=== PATIENT | female | born 1990 | race Caucasian/White ===

== ENCOUNTER 2016-09-28 06:58 | Day surgery (SDC) | payer MEDICAID ==
[~2016-09-28] VITALS: Ht 157.5 cm; Wt 74.8 kg
[2016-09-28] MEDS ORDERED: fentaNYL 0.05 MG/ML VIAL ONE (07:25)
[2016-09-28] MEDS ORDERED: MIDAZOLAM 2 MG/2 ML VIAL ONE ×2 (07:25→07:26)
== END 2016-09-28 09:50 | disposition home or self-care (01) ==
LOC: MDS 06:58 → MMU 06:58 → MDS 09:50
PROVIDERS: ATTEND Internal Medicine Gastroenterology
DX: K31.89 Other diseases of stomach and duodenum (principal); K21.9 Gastro-esophageal reflux disease without esophagitis; E66.3 Overweight; Z79.899 Other long term (current) drug therapy; Z98.890 Other specified postprocedural states; Z68.29 Body mass index [BMI] 29.0-29.9, adult
CPT/HCPCS: 36415; 43239; 86677; J2250; J7030; J3010

== ENCOUNTER 2016-10-26 17:51 | Emergency (ER) | payer MEDICAID ==
[~2016-10-26] VITALS: Ht 157.5 cm; Wt 72.6 kg
[2016-10-26 18:55] VITALS: BP 124/83
[2016-10-26 19:31] LABS: BASOPHILS # (AUTO) 0.7 K/uL (0.00-0.22); EOSINOPHILS # (AUTO) 0.1 K/uL (0-0.4); HEMOGLOBIN 14.6 g/dL (12.0-16.0); LYMPHOCYTES # (AUTO) 1.6 K/uL (2.5-16.5); MEAN CORPUSCULAR HEMOGLOBIN 29 pg (27-31); MEAN CORPUSCULAR HGB CONC 33 g/dL (33-37); MEAN CORPUSCULAR VOLUME 91 fL (80-94); MONOCYTES # (AUTO) 0.2 K/uL (0.8-1.0); PLATELET COUNT (AUTO) 313 K/uL (140-450); RED BLOOD CELL COUNT(AUTO) 4.97 MIL/uL (4.20-5.40); RED CELL DISTRIBUTION WIDTH 13.1 % (11.6-13.7)
[2016-10-26 19:36] LABS: APPEARANCE,URINE CLEAR (CLEAR); BILIRUBIN,URINE NEGATIVE (NEGATIVE); BLOOD, URINE NEGATIVE (NEGATIVE); COLOR,URINE YELLOW (YELLOW); LEUKOCYTE ESTERASE ,URINE 1+ (NEGATIVE); NITRITE, URINE NEGATIVE (NEGATIVE); PH,URINE 6.5 (5.0-9.0); UGLUCOSE NEGATIVE (NEGATIVE)
[2016-10-26] MEDS ORDERED: KETOROLAC 30 MG/ML VIAL IVP ONE (19:40)
[2016-10-26] MEDS ORDERED: NACL 0.9% 1,000 ML IV ONE (19:40)
[2016-10-26 19:41] LABS: BARBITURATE, URINE NEG. ng/ml (NEG <=200); BENZODIAZEPINE, URINE NEG. ng/mL (NEG <=200); CANNABINOID, URINE NEG. ng/mL (NEG <=50); COCAINE, URINE NEG. ng/mL (NEG <=300); OPIATE, URINE NEG. ng/mL (NEG <=2000); PHENCYCLIDINE SCREEN,URINE NEG. ng/mL (NEG <=25)
[2016-10-26 19:42] LABS: RBC,URINE 0-3 /HPF (0-5); WBC,URINE 0-5 /HPF (0-5)
[2016-10-26 19:50] LABS: ANION GAP 16.4 (8-16); CARBON DIOXIDE 23.6 mmol/L (21-32); CREATININE 0.7 mg/dL (0.6-1.3)
[2016-10-26 19:58] LABS: THYROID STIMULATING HORMONE 2.08 uIU/mL (0.34-3.74); TOTAL BILIRUBIN 0.3 mg/dL (0.0-1.0)
[2016-10-26 20:05] VITALS: BP 118/72
== END 2016-10-26 20:05 | disposition home or self-care (01) ==
LOC: MED 17:51
DX: F41.9 Anxiety disorder, unspecified (principal); R51 Headache; R03.0 Elevated blood-pressure reading, without diagnosis of hypertension
CPT/HCPCS: 36415; 71010; 80053; 80305; 81001; 81025; 84443; 85025; 87086; 93005; 96374; 99285; J1885; J7030; Q0092

== ENCOUNTER 2017-04-08 14:25 | Emergency (ER) | payer OTHER, MEDICAID ==
[~2017-04-08] VITALS: Ht 157.5 cm; Wt 72.1 kg
[2017-04-08 14:37] VITALS: BP 117/84
--- NOTE | 2017-04-08 14:42 | NUR ---
PATIENT AMBULATED TO BED #11
--- NOTE | 2017-04-08 14:55 | NUR ---
PRIMARY NURSE AND ERMD MADE AWARE OF BS 64. ORANGE JUICE GIVEN
--- NOTE | 2017-04-08 15:00 | NUR ---
PATIENT PRESENTS TO ED WITH C/O HEADACHE, DIZZINESS AND CHEST SORENESS . PT STATES SHE HAS BEEN EXPERIENCING SYMPTOMS FOR 3 DAYS NOW . DENIES N/V/D; SKIN IS PINK/WARM/DRY; AAOX4 WITH EVEN AND STEADY GAIT; LUNGS CLEAR BL; HR EVEN AND REGULAR; PT DENIES ANY FEVER,SOB, OR COUGH AT THIS TIME; PATIENT STATES PAIN OF 8/10 AT THIS TIME; VSS; PATIENT POSITIONED FOR COMFORT; HOB ELEVATED; BEDRAILS UP X2; BED DOWN. ER MD MADE AWARE OF PT STATUS.
[2017-04-08] MEDS ORDERED: KETOROLAC 60 MG/2 ML VIAL IM ONE (15:10)
[2017-04-08] MEDS ORDERED: ALPRAZolam 0.5 MG TAB PO SCH (15:10)
[2017-04-08 16:47] VITALS: BP 107/70
--- NOTE | 2017-04-08 16:48 | NUR ---
Patient discharged with v/s stable. Written and verbal after care instructions given and explained. Patient alert, oriented and verbalized understanding of instructions. Ambulatory with steady gait. All questions addressed prior to discharge. ID band removed. Patient advised to follow up with PMD. Rx of VISTARIL AND LEVSIN given. Patient educated on indication of medication including possible reaction and side effects. Opportunity to ask questions provided and answered.
== END 2017-04-08 16:48 | disposition home or self-care (01) ==
LOC: MED 14:25
DX: K58.9 Irritable bowel syndrome, unspecified (principal); K21.9 Gastro-esophageal reflux disease without esophagitis
CPT/HCPCS: 81002; 81025; 82948; 93005; 96372; 99283; J1885

== ENCOUNTER 2017-05-11 19:03 | Emergency (ER) | payer MEDICAID, OTHER ==
[~2017-05-11] VITALS: Ht 160 cm; Wt 72.6 kg
--- NOTE | 2017-05-11 19:12 | NUR ---
Sujit santiago in [facility] - 05/11/17 at 1912 by SYLVESTER PT AMBULATES TO CHAIR A
[2017-05-11 19:16] VITALS: BP 125/78
--- NOTE | 2017-05-11 19:22 | NUR ---
PT.AMBULATES TO ER CHAIR D
--- NOTE | 2017-05-11 19:24 | NUR ---
Dr. Ryder evaluating patient.
[2017-05-11 19:47] LABS: APPEARANCE,URINE CLEAR (CLEAR); BILIRUBIN,URINE NEGATIVE (NEGATIVE); BLOOD, URINE NEGATIVE (NEGATIVE); COLOR,URINE YELLOW (YELLOW); LEUKOCYTE ESTERASE ,URINE 1+ (NEGATIVE); NITRITE, URINE NEGATIVE (NEGATIVE); PH,URINE 7.5 (5.0-9.0); UGLUCOSE NEGATIVE (NEGATIVE)
[2017-05-11] MEDS ORDERED: KETOROLAC 60 MG/2 ML VIAL IM ONE (19:50)
[2017-05-11 19:58] LABS: RBC,URINE 0-5 (RARE) /HPF (0-5)
[2017-05-11 21:16] VITALS: BP 133/84
--- NOTE | 2017-05-11 21:16 | NUR ---
Patient discharged with v/s stable. Written and verbal after care instructions given and explained. Patient alert, oriented and verbalized understanding of instructions. Ambulatory with steady gait. All questions addressed prior to discharge. ID band removed. Patient advised to follow up with PMD. Rx of Motrin and Tramadol given. Patient educated on indication of medication including possible reaction and side effects. Opportunity to ask questions provided and answered.
== END 2017-05-11 21:16 | disposition home or self-care (01) ==
LOC: MED 19:03
DX: G44.209 Tension-type headache, unspecified, not intractable (principal); K21.9 Gastro-esophageal reflux disease without esophagitis
CPT/HCPCS: 81001; 87086; 96372; 99284; J1885; 81025

== ENCOUNTER 2017-07-14 08:35 | Emergency (ER) | payer MEDICAID ==
[~2017-07-14] VITALS: Ht 157.5 cm; Wt 73.5 kg
[2017-07-14 08:40] VITALS: BP 117/76
--- NOTE | 2017-07-14 08:40 | NUR ---
Note undone in EDM - 07/14/17 at 1140 by MEDFL 26Y/F BIB SELF C/O HEADACHE, NAUSEA, HEARTBURN, AND STOMACH ACHE FOR 3 DAYS. DENIES VOMITING/DIZZINESS OR SOB. STATES HER HEADACHE FEELS LIKE SHE PUT MENTHOL ON HER HEAD. PT HAS APPOINTMENT WITH NEUROLOGY ON Tuesday07/15/17, WANTS SOMETHING FOR PAIN TO GET THROUGH THE DAY. PT STATES SHE IS 6 WEEKS .
--- NOTE | 2017-07-14 08:50 | NUR ---
PT AMBULATES TO ER BED 11, REPORT GIVEN TO SENDY Wasserman
--- NOTE | 2017-07-14 08:50 | NUR ---
26Y/F BIB SELF C/O HEADACHE, NAUSEA, HEARTBURN, AND STOMACH ACHE FOR 3 DAYS. DENIES VOMITING/DIZZINESS OR SOB. STATES HER HEADACHE FEELS LIKE SHE PUT MENTHOL ON HER HEAD. PT HAS APPOINTMENT WITH NEUROLOGY ON Tuesday07/15/17, WANTS SOMETHING FOR PAIN TO GET THROUGH THE DAY. PT STATES SHE IS 6 WEEKS .
[2017-07-14] MEDS ORDERED: ONDANSETRON 4 MG ODT PO ONE (09:05)
[2017-07-14] MEDS ORDERED: IBUPROFEN 800 MG TAB PO ONE (09:05)
[2017-07-14] MEDS ORDERED: PANTOPRAZOLE 40 MG TABEC PO ONE (09:05)
--- NOTE | 2017-07-14 12:04 | NUR ---
Patient discharged with v/s stable. Written and verbal after care instructions given and explained. Patient alert, oriented and verbalized understanding of instructions. Ambulatory with steady gait. All questions addressed prior to discharge. ID band removed. Patient advised to follow up with PMD. Rx of MOTRIN, ZANTAC, ZOFRAN given. Patient educated on indication of medication including possible reaction and side effects. Opportunity to ask questions provided and answered.
[2017-07-14 12:05] VITALS: BP 104/58
== END 2017-07-14 12:04 | disposition home or self-care (01) ==
LOC: MED 08:35
DX: R51 Headache (principal); R10.9 Unspecified abdominal pain; R11.0 Nausea; K21.9 Gastro-esophageal reflux disease without esophagitis; G43.909 Migraine, unspecified, not intractable, without status migrainosus
CPT/HCPCS: 76801; 81002; 81025; 99284; Q0092; S0119

== ENCOUNTER 2017-08-05 14:07 | Emergency (ER) | payer MEDICAID ==
[~2017-08-05] VITALS: Ht 157.5 cm; Wt 79.5 kg
[2017-08-05 14:12] VITALS: BP 130/73
--- NOTE | 2017-08-05 14:18 | NUR ---
AFTER PROVIDING URINE SAMPLE, PT AMBULATES TO BED 1, REPORT GIVEN TO SENDY IRIZARRY
--- NOTE | 2017-08-05 14:18 | NUR ---
Sujit santiago in [facility] - 08/05/17 at 1422 by SYLVESTER AFTER PROVIDING URINE SAMPLE, PT AMBULATES TO BED 3, REPORT GIVEN TO SENDY IRIZARRY
--- NOTE | 2017-08-05 14:20 | NUR ---
26/F BIB SELF C/O VAGINAL BLEEDING WITH LOWER ABD PAIN X 2 DAY . LMP 04/30/2017 9 WKS ; MISCARRIAGE 1; FINISHED WITH AMOXICILLIN PRESCRIBE FROM [facility] FOR UTI; C/O DISCOMFORT ON URINATION. DENIES N/V/D; SKIN IS PINK/WARM/DRY; AAOX4 WITH EVEN AND STEADY GAIT; LUNGS CLEAR BL; HR EVEN AND REGULAR; PT DENIES ANY FEVER, CP, SOB, OR COUGH AT THIS TIME; PATIENT STATES PAIN OF 4/10 AT THIS TIME. PATIENT POSITIONED FOR COMFORT; HOB ELEVATED; BEDRAILS UP X2; BED DOWN. ER MD MADE AWARE OF PT STATUS.
--- NOTE | 2017-08-05 14:45 | NUR ---
PELVIC EXAM DONE;PT TOLERATED PROCEDURE WELL.
--- NOTE | 2017-08-05 15:00 | NUR ---
PELVIC EXAM DONE;PT TOLERATED PROCEDURE WELL. SPECIMEN SENT TO LAB .
[2017-08-05 15:36] LABS: BASOPHILS # (AUTO) 0.1 K/uL (0.00-0.22); BASOPHILS % (AUTO) 0.6 % (0.0-2.0); EOSINOPHILS # (AUTO) 0.2 K/uL (0-0.4); EOSINOPHILS % (AUTO) 1.5 % (0.0-4.0); HEMATOCRIT 39.1 % (36-48); HEMOGLOBIN 13.1 g/dL (12.0-16.0); LYMPHOCYTES # (AUTO) 2.7 K/uL (2.5-16.5); LYMPHOCYTES % (AUTO) 20.1 % (20.5-51.1); MEAN CORPUSCULAR HEMOGLOBIN 31 pg (27-31); MEAN CORPUSCULAR HGB CONC 33 g/dL (33-37); MONOCYTES # (AUTO) 0.8 K/uL (0.8-1.0); MONOCYTES % (AUTO) 5.9 % (1.7-9.3); NEUTROPHILS # (AUTO) 9.8 K/uL (1.8-7.7); NEUTROPHILS % (AUTO) 71.9 % (42.2-75.2); PLATELET COUNT (AUTO) 274 K/uL (140-450); RED BLOOD CELL COUNT(AUTO) 4.26 MIL/uL (4.20-5.40); RED CELL DISTRIBUTION WIDTH 13.5 % (11.6-13.7); WHITE BLOOD COUNT (AUTO) 13.7 K/uL (4.8-10.8)
[2017-08-05 15:37] LABS: APPEARANCE,URINE SL CLOUDY (CLEAR); BILIRUBIN,URINE NEGATIVE (NEGATIVE); BLOOD, URINE 1+ (NEGATIVE); COLOR,URINE YELLOW (YELLOW); LEUKOCYTE ESTERASE ,URINE 3+ (NEGATIVE); NITRITE, URINE NEGATIVE (NEGATIVE); PH,URINE 6.5 (5.0-9.0); UGLUCOSE NEGATIVE (NEGATIVE)
[2017-08-05 15:58] LABS: RBC,URINE 0-5 (RARE) /HPF (0-5); YEAST,URINE Moderate /HPF (None Seen)
--- NOTE | 2017-08-05 16:20 | NUR ---
Patient appears to be resting comfortably in bed. Vital Signs within normal limits. Respirations even and unlabored.
[2017-08-05 17:32] VITALS: BP 131/79
[2017-08-09 08:28] LABS: CHLAMYDIA TRACHOMATIS AMP DNA Negative (Negative)
== END 2017-08-05 16:20 | disposition home or self-care (01) ==
LOC: MED 14:07
DX: O20.0 Threatened abortion (principal); O23.41 Unspecified infection of urinary tract in pregnancy, first trimester; O23.591 Infection of other part of genital tract in pregnancy, first trimester; K21.9 Gastro-esophageal reflux disease without esophagitis; Z3A.09 9 weeks gestation of pregnancy
CPT/HCPCS: 36415; 76817; 81001; 81025; 84702; 85025; 86900; 86901; 87070; 87086; 87205; 87210; 99285; Q0092; 87491

== ENCOUNTER 2018-08-08 12:03 | Emergency (ER) | payer MEDICAID ==
[~2018-08-08] VITALS: Ht 157.5 cm; Wt 96.6 kg
[2018-08-08 12:20] VITALS: BP 122/77
--- NOTE | 2018-08-08 12:24 | NUR ---
URINE CUP HANDED TO PT FOR SAMPLE
--- NOTE | 2018-08-08 13:50 | NUR ---
CAME IN WITH C/O DIZZINESS WITH MIDSTERNAL CHEST PAIN RADIATING TO HER LEFT RIBS FOR 2 WEEKS UNPROVOKED, WITH EPIGASTRIC PAIN RADIATING TO HER BACK , 3/10.
[2018-08-08 14:17] LABS: BASOPHILS % (AUTO) 0.4 % (0.0-2.0); EOSINOPHILS # (AUTO) 0.2 K/uL (0-0.4); EOSINOPHILS % (AUTO) 1.6 % (0.0-4.0); HEMATOCRIT 39.1 % (36-48); HEMOGLOBIN 12.8 g/dL (12.0-16.0); LYMPHOCYTES # (AUTO) 2.3 K/uL (2.5-16.5); LYMPHOCYTES % (AUTO) 23.9 % (20.5-51.1); MEAN CORPUSCULAR HEMOGLOBIN 26 pg (27-31); MEAN CORPUSCULAR HGB CONC 33 g/dL (33-37); MEAN CORPUSCULAR VOLUME 80.4 fL (80-94); MONOCYTES # (AUTO) 0.6 K/uL (0.8-1.0); MONOCYTES % (AUTO) 6.2 % (1.7-9.3); NEUTROPHILS # (AUTO) 6.5 K/uL (1.8-7.7); NEUTROPHILS % (AUTO) 67.9 % (42.2-75.2); PLATELET COUNT (AUTO) 373 K/uL (140-450); RED BLOOD CELL COUNT(AUTO) 4.87 MIL/uL (4.20-5.40); WHITE BLOOD COUNT (AUTO) 9.6 K/uL (4.8-10.8)
[2018-08-08 14:18] LABS: BILIRUBIN,URINE NEGATIVE (NEGATIVE); BLOOD, URINE NEGATIVE (NEGATIVE); COLOR,URINE YELLOW (YELLOW); LEUKOCYTE ESTERASE ,URINE 3+ (NEGATIVE); NITRITE, URINE NEGATIVE (NEGATIVE); PH,URINE 7.5 (5.0-9.0); UGLUCOSE NEGATIVE (NEGATIVE)
[2018-08-08 14:19] LABS: APPEARANCE,URINE HAZY (CLEAR)
[2018-08-08 14:30] LABS: RBC,URINE 0-5 /HPF (0-5); WBC,URINE 20-60 /HPF (0-5)
[2018-08-08 14:30] LABS: ANION GAP 13.2 (8-16); CARBON DIOXIDE 26.8 mmol/L (21-32); CREATININE 0.6 mg/dL (0.6-1.3)
[2018-08-08 14:36] LABS: ALBUMIN 3.7 g/dL (3.4-5.0); TOTAL BILIRUBIN 0.2 mg/dL (0.0-1.0)
--- NOTE | 2018-08-08 15:40 | NUR ---
ALL RESULTS BACK AND NOTED BY ERMD AND FOR D/C
[2018-08-08 15:57] VITALS: BP 120/75
--- NOTE | 2018-08-08 15:57 | NUR ---
Patient discharged with v/s stable. Written and verbal after care instructions given and explained. Patient alert, oriented and verbalized understanding of instructions. Ambulatory with steady gait. All questions addressed prior to discharge. ID band removed. Patient advised to follow up with PMD. Rx of PEPCID 40 MG. CEPHALEXIN 500MG given. Patient educated on indication of medication including possible reaction and side effects. Opportunity to ask questions provided and answered.
== END 2018-08-08 15:57 | disposition home or self-care (01) ==
LOC: MED 12:03
DX: R07.89 Other chest pain (principal); N39.0 Urinary tract infection, site not specified; K21.9 Gastro-esophageal reflux disease without esophagitis
CPT/HCPCS: 36415; 76705; 80053; 81001; 81025; 83690; 84484; 85025; 87086; 93005; 99284; Q0092

== ENCOUNTER 2018-11-21 10:15 | Emergency (ER) | payer MEDICAID ==
[~2018-11-21] VITALS: Ht 157.5 cm; Wt 97.7 kg
[2018-11-21 10:24] VITALS: BP 109/73
--- NOTE | 2018-11-21 10:29 | NUR ---
Patient ambulated to bed 11. RN evaluating patient at bedside.
--- NOTE | 2018-11-21 10:38 | NUR ---
PT BIB SELF C/O INTERMITENT SORE EPIGASTRIC PAIN THAT RADIATES TO CHEST X MONTHS. PT REPORTS EPISODES OF PAIN LAST ABOUT 5-10 MINUTES FOLOWED BY FEELING BLOATED AND TIGHT THEN BURPING. PT TX WITH OMEPRAZOLE AND TUMS W/ RELIEF. - FEVER, - DIARRHA, LAST BM TODAY. VSS. ER MD TO SEE PT. hx--gerd rx--omeprazole, tums
--- NOTE | 2018-11-21 11:11 | NUR ---
ER AT BEDSIDE
[2018-11-21 11:24] VITALS: BP 106/61
--- NOTE | 2018-11-21 11:24 | NUR ---
Patient discharged with v/s stable. Written and verbal after care instructions given and explained. Patient alert, oriented and verbalized understanding of instructions. Ambulatory with steady gait. All questions addressed prior to discharge. ID band removed. Patient advised to follow up with PMD. Rx of FAMOTIDINE given. Patient educated on indication of medication including possible reaction and side effects. Opportunity to ask questions provided and answered.
== END 2018-11-21 11:24 | disposition home or self-care (01) ==
LOC: MED 10:15
DX: K29.70 Gastritis, unspecified, without bleeding (principal); K21.9 Gastro-esophageal reflux disease without esophagitis
CPT/HCPCS: 81002; 81025; 99282

== ENCOUNTER 2019-04-20 06:48 | Emergency (ER) | payer MEDICAID ==
[~2019-04-20] VITALS: Ht 157.5 cm; Wt 100.7 kg
[2019-04-20 06:57] VITALS: BP 123/78
--- NOTE | 2019-04-20 07:20 | NUR ---
28 Y/O FEMALE C/O LOWER BACK PAIN X 1 WEEK. DENIES URINARY SYMPTOMS. DENIES TRAUMA/INJURY TO BACK. STATES 8/10 CONSTANT ACHING PAIN. PAIN INCREASING WITH AMBULATION. PT SITTING UPRIGHT CALM AND PLEASANT. RR EVEN AND UNLABORED. X 1 SIDE RAIL RAISED, BED LOCKED AND IN LOW POSITION. VSS MEDHX: DENIES ALLERGIES: NKA
--- NOTE | 2019-04-20 07:28 | NUR ---
DR FLORES EXAMINING PT.
[2019-04-20] MEDS ORDERED: KETOROLAC 60 MG/2 ML VIAL IM ONE (07:30)
[2019-04-20 07:44] VITALS: BP 123/78
== END 2019-04-20 07:44 | disposition home or self-care (01) ==
LOC: MED 06:48
DX: M54.41 Lumbago with sciatica, right side (principal); K21.9 Gastro-esophageal reflux disease without esophagitis
CPT/HCPCS: 81002; 81025; 96372; 99283; J1885